=== PATIENT | female | born 1945 ===

== ENCOUNTER 2018-07-02 19:37 | Observation (INO) ==
--- NOTE | 2018-07-02 20:26 | PROVIDER DOCUMENTATION ---
HPI-Neurological Disorder - General Chief Complaint: Stroke-Like Symptoms Stated Complaint: stroke Time Seen by Provider: 07/02/18 19:39 Allergies/Adverse Reactions: Patient Allergies Allergy/AdvReac Type Severity Reaction Status Date / Time No Known Allergies Allergy Verified 09/13/13 21:19 Home Medications: Home Medication List Medication Instructions Recorded Confirmed Last Taken Type Carvedilol [Coreg] 3.125 mg PO DAILY 09/14/13 09/14/13 Unknown History ENALApril [Vasotec] 20 mg PO DAILY 09/14/13 09/14/13 Unknown History Hydrochlorothiazide 50 mg PO DAILY 09/14/13 09/14/13 Unknown History Isosorbide Mononitrate E.r. [Imdur] 60 mg PO DAILY 09/14/13 09/14/13 Unknown History Levothyroxine [Synthroid] 75 microgm PO DAILY 09/14/13 09/14/13 Unknown History Metformin [Glucophage] 850 mg PO BID CC 09/14/13 09/14/13 Unknown History ATORVAstatin [Lipitor] 40 mg PO DAILY #0 tablet 09/16/13 Unknown Rx Aspirin 81 mg PO DAILY #0 chewtab 09/16/13 Unknown Rx Ranolazine E.r. [Ranexa] 500 mg PO BID #60 tablet 09/16/13 Unknown Rx Review of Systems - Adult - REVIEW OF SYSTEMS - ADULT Constitutional: reports: no symptoms reported Past History - Adult - PAST MEDICAL HISTORY-ADULT Review of Records: reports: Old Records Reviewed Physical Exam- Neurological - Physical Exam-Neuro General Appearance: alert, no apparent distress Progress - PLAN OF CARE/RESULTS Progress/Plan/Lab Results: Vital Signs - 8 hr 07/02/18 19:40 07/02/18 19:56 07/02/18 19:58 Temperature 97.9 F Pulse Rate 96 H 99 H 95 H Respiratory Rate 19 22 21 Blood Pressure 123/69 123/69 O2 Sat by Pulse Oximetry 100 94 L 96 07/02/18 20:00 07/02/18 20:10 Temperature Pulse Rate 97 H 98 H Respiratory Rate 23 18 Blood Pressure O2 Sat by Pulse Oximetry 94 L 97 Laboratory Results - last 24 hr 07/02/18 07/02/18 07/02/18 20:00 20:30 20:30 WBC 29.03 H RBC 5.31 Hgb 16.1 H Hct 47.9 H MCV 90.2 MCH 30.3 MCHC 33.6 RDW Std Deviation 12.5 Plt Count 319 MPV 10.7 H Immature Gran % (Auto) 0.5 Neut % (Auto) 91.9 H Lymph % (Auto) 1.8 L [place] % (Auto) 5.5 Eos % (Auto) 0.2 Baso % (Auto) 0.1 Immature Gran # (Auto) 0.15 H Neut # (Auto) 26.67 H Lymph # (Auto) 0.53 L [place] # (Auto) 1.59 H Eos # (Auto) 0.07 Baso # (Auto) 0.02 PT INR PTT (Actin FS) Sodium 141 Potassium 4.6 Chloride 100 Carbon Dioxide 21 L Anion Gap 20 BUN 25 H Creatinine 1.5 H BUN/Creatinine Ratio 17 Glucose 222 H POC Glucose 249 H Calculated Osmolality 293 Calcium 9.2 Total Bilirubin 0.82 AST 17 ALT 22 Alkaline Phosphatase 104 Troponin T Total Protein 8.6 H Albumin 4.7 Globulin 3.9 Albumin/Globulin Ratio 1.2 Urine Source Urine Color Urine Turbidity Urine pH Ur Specific [place] Urine Protein Ur Glucose (Stick) Ur Ketones (Stick) Urine Blood Urine Nitrite Urine Bilirubin Urobilinogen Dipstick Urine Leukocytes Urine WBC (Auto) Urine RBC (Auto) U Epithel Cells (Auto) Urine Bacteria (Auto) 07/02/18 07/02/18 07/02/18 20:30 20:30 20:35 WBC RBC Hgb Hct MCV MCH MCHC RDW Std Deviation Plt Count MPV Immature Gran % (Auto) Neut % (Auto) Lymph % (Auto) [place] % (Auto) Eos % (Auto) Baso % (Auto) Immature Gran # (Auto) Neut # (Auto) Lymph # (Auto) [place] # (Auto) Eos # (Auto) Baso # (Auto) PT 13.6 INR 0.96 PTT (Actin FS) 27.8 Sodium Potassium Chloride Carbon Dioxide Anion Gap BUN Creatinine BUN/Creatinine Ratio Glucose POC Glucose Calculated Osmolality Calcium Total Bilirubin AST ALT Alkaline Phosphatase Troponin T < 0.010 Total Protein Albumin Globulin Albumin/Globulin Ratio Urine Source CATH Urine Color YELLOW Urine Turbidity CLEAR Urine pH 5.5 Ur Specific [place] 1.013 Urine Protein TRACE A Ur Glucose (Stick) NEGATIVE Ur Ketones (Stick) NEGATIVE Urine Blood NEGATIVE Urine Nitrite NEGATIVE Urine Bilirubin NEGATIVE Urobilinogen Dipstick NORMAL Urine Leukocytes NEGATIVE Urine WBC (Auto) <10 Urine RBC (Auto) <10 U Epithel Cells (Auto) <10 Urine Bacteria (Auto) NEGATIVE Orders Category Date Time Status Cardiac Monitoring DIRECTED Care 07/02/18 19:40 Active Finger Stick Blood Sugar (ED) DIRECTED Care 07/02/18 19:40 Active Misc. NRSG Communication Order DIRECTED Care 07/02/18 19:40 Active Oxygen Therapy- ED Nursing DIRECTED Care 07/02/18 19:40 Active Saline Loc NOW Care 07/02/18 19:40 Active CHEST-PORTABLE [RAD] Stat Exams 07/02/18 19:[address] ABD/PELVIS W/IV CONT ONLY [CT] Stat Exams 07/02/18 21:[address] ABDOMEN/PELVIS W/O CONTRAST [CT] Stat Exams 07/02/18 21:[address] HEAD W/O CONTRAST [CT] Stat Exams 07/02/18 19:37 Completed C DIFF ANTIGEN [STOOL] Stat Lab 07/02/18 21:25 Uncollected C DIFF TOXIN [STOOL] Stat Lab 07/02/18 21:25 Uncollected CBC WITH ELECTRONIC DIFF [HEME] Stat Lab 07/02/18 20:30 Completed COMPREHENSIVE METABOLIC PANEL [CHEM] Stat Lab 07/02/18 20:30 Completed LACTATE, PLASMA [CHEM] Stat Lab 07/02/18 21:10 Ordered PROTIME WITH INR [COAG] Stat Lab 07/02/18 20:30 Completed PTT [COAG] Stat Lab 07/02/18 20:30 Completed TROPONIN T Stat Lab 07/02/18 20:30 Completed URINALYSIS W/POSS RFLX CULT [URINALYSIS] Stat Lab 07/02/18 20:35 Completed 0.9% Sodium Chloride Inj [Ns] 1,000 ml Med 07/02/18 21:51 Active IV 999 mls/hr EKG [EKG] Stat Ther 07/02/18 19:40 Ordered Result Diagrams: 07/02/18 20:30 07/02/18 20:30 Departure - Departure Date of Disposition Decision: 07/02/18 Time of Disposition Decision: 21:56 DIAGNOSIS: Stroke-like symptom, Leukocytosis, JAZZMINE (acute kidney injury), Sepsis Disposition: ADMITTED INPATIENT 09 Certified Medical Emergency: Emergent Condition: Stable Additional Freetext Instructions: ED Follow Up Instructions: You have been treated by a care provider in the Emergency Department. These instructions are being provided to you so you can have an understanding of how to care for yourself upon discharge. Upon discharge from the Emergency Department, you are responsible for making arrangements for follow-up care by a physician of your choice. Take all prescribed medications as directed. Return to the Emergency Department immediately for any new or worsening symptoms. You may call the Physician Referral phone number at [phone] to obtain a list of Physicians who are taking new patients. Referrals and Follow-Ups: Maikel Jaquez MD [Primary Care Provider] - - Critical Care Note This patient required my direct & personal management of CC.: No Attestation - Physician/ MADHAV Attestation Patient care was provided by Advanced Practice Provider:: No The physician spent face to face time with patient:: Yes Advanced Practice Provider documentation review:: Supervising physician onsite and consulted in the evaluation and care of this patient. The physician did have a face to face encounter with the patient. - NIH Stroke Scale NIH Type: Initial Evaluation Level of Consciousness: 0-Alert LOC Questions (ask month and age): 1-Answers One Correctly LOC Commands (ask to open & close eyes;make a fist, let go): 0-Obeys Both Correctly Visual (use finger movement, counting or visual threat): 0-No Visual Loss Facial Palsy (show teeth or raise eyebrows & close eyes tght: 0-Symmetrical Movement Motor Function-left arm: 0-Normal Motor Function-right arm: 0-Normal Motor Function-left le-Normal Motor Function-right le-Normal Limb Ataxia(nxgvdc-[id number]-[id number], or heel to esparza): 0-Untestable Sensory(pin prick to face,arms,trunk,legs-compare side/side): 0-No Ataxia Best Language(name item/read sentence.Ex-Down to Earth): 1-Mild to Moderate Aphasia Dysarthria(Pt read words or say words Ex.Mama,Tip-Top,Thanks: 1-Mild-Mod Slurring Words Extinction and Inattention: 0-Normal Modified Wilbarger Score Criteria: 1-no significant disability despite symptoms
--- NOTE | 2018-07-02 20:26 | Diag Imaging Result Doc PS360 ---
EXAM: CT HEAD W/O CONTRAST HISTORY: cva TECHNIQUE: CT head without contrast COMPARISON: None. FINDINGS: No parenchymal hemorrhage. No epidural or subdural hematoma. No subarachnoid hemorrhage. There is evidence of an old left parietal infarct. There are also mild chronic microvascular ischemic changes. No mass identified on this noncontrasted exam. No hydrocephalus. No sinus opacification. IMPRESSION: 1.No hemorrhage 2.Chronic microvascular ischemic changes with an old left parietal infarct 3.A follow-up MRI may be beneficial. This exam was performed using automated exposure control, adjustment of mA or kV according to patient size, and/or use of iterative reconstruction technique. Electronically signed by Dao Davis 07/02/2018 8:23 PM
--- NOTE | 2018-07-02 20:30 | Diag Imaging Result Doc PS360 ---
EXAM: CHEST-PORTABLE HISTORY: stroke like symptoms TECHNIQUE: Portable chest single view COMPARISON: 09/13/2013 FINDINGS: The lungs are well expanded. The heart is not enlarged. The vessels are not distended. There are no infiltrates. No effusion identified. IMPRESSION: Negative exam. Electronically signed by Dao Davis 07/02/2018 8:27 PM
[2018-07-02 20:37] LABS: URINE SOURCE CATH
[2018-07-02 20:43] LABS: BILIRUBIN URINE NEGATIVE (NEGATIVE); BLOOD URINE NEGATIVE (NEGATIVE); COLOR YELLOW; GLUCOSE URINE NEGATIVE (NEGATIVE); KETONE URINE NEGATIVE (NEGATIVE); LEUKOCYTES URINE NEGATIVE (NEGATIVE); NITRITE URINE NEGATIVE (NEGATIVE); PH URINE 5.5; PROTEIN URINE TRACE mg/dL (NEGATIVE); SP GRAVITY URINE 1.013; TURBIDITY URINE CLEAR (CLEAR); UROBILINOGEN URINE NORMAL (NORMAL)
[2018-07-02 20:44] LABS: UR EPITHELIAL CELLS <10 /HPF (<10); URINE BACTERIA NEGATIVE /HPF; URINE RBC <10 /HPF (<10); URINE WBC <10 /HPF (<10)
[2018-07-02 20:49] LABS: INR 0.96; PROTIME 13.6 Seconds (11.0-16.0)
[2018-07-02 20:50] LABS: PTT 27.8 Seconds (22.3-41.8)
[2018-07-02 20:57] LABS: BASO# 0.02 X1000 (0.0-0.2); BASO% 0.1 % (0.0-0.8); EOS# 0.07 X1000 (0.0-0.7); EOS% 0.2 % (0.0-10.0); HEMATOCRIT 47.9 % (37.0-47.0); HEMOGLOBIN 16.1 g/dL (12.0-16.0); IMM GRAN# 0.15 X1000 (0.0-0.04); IMM GRAN% 0.5 % (0.0-0.5); LYMPH# 0.53 X1000 (1.2-3.4); LYMPH% 1.8 % (20.5-51.1); MCH 30.3 PG (27-31); MCHC 33.6 g/dL (33-37); MCV 90.2 FL (81-99); MONO# 1.59 X1000 (0.11-0.59); MONO% 5.5 % (1.7-9.3); MPV 10.7 FL (7.4-10.4); NEUT# 26.67 X1000 (1.4-6.5); NEUT% 91.9 % (42.2-75.2); PLT 319 X1000 (130-400); RBC 5.31 XMIL (4.2-5.4); RDW 12.5 % (11.5-14.5); WBC 29.03 X1000 (4.8-10.8)
[2018-07-02 20:59] LABS: AGAP 20; ALB/GLOB RATIO 1.2; ALBUMIN 4.7 g/dL (3.5-5.0); ALKALINE PHOSPHATASE 104 U/L (32-104); BUN 25 mg/dL (8-22); CALCIUM 9.2 mg/dL (8.8-10.2); CHLORIDE 100 mmol/L (98-107); COSMO 293; CREATININE 1.5 mg/dL (0.5-0.9); GLUCOSE 222 mg/dL (70-104); GOT 17 U/L (10-30); GPT 22 U/L (10-36); POTASSIUM 4.6 mmol/L (3.5-5.1); SODIUM 141 mmol/L (136-145); TCO2 21 mmol/L (25-35); TOTAL BILIRUBIN 0.82 mg/dL (0.20-1.00); TOTAL PROTEIN 8.6 g/dL (6.3-8.3)
[2018-07-02] MEDS ORDERED: NS 1,000 ML IV ONE (21:51)
--- NOTE | 2018-07-02 21:55 | PROVIDER DOCUMENTATION ---
This chart was entered by Shelbi Bañuelos Scribe, acting as scribe for Sofi Cool MD. HPI-Neurological Disorder - General Chief Complaint: Stroke-Like Symptoms Stated Complaint: stroke Time Seen by Provider: 07/02/18 19:39 Source: patient Allergies/Adverse Reactions: Patient Allergies Allergy/AdvReac Type Severity Reaction Status Date / Time No Known Allergies Allergy Verified 09/13/13 21:19 Home Medications: Home Medication List Medication Instructions Recorded Confirmed Last Taken Type Carvedilol [Coreg] 3.125 mg PO DAILY 09/14/13 09/14/13 Unknown History ENALApril [Vasotec] 20 mg PO DAILY 09/14/13 09/14/13 Unknown History Hydrochlorothiazide 50 mg PO DAILY 09/14/13 09/14/13 Unknown History Isosorbide Mononitrate E.r. [Imdur] 60 mg PO DAILY 09/14/13 09/14/13 Unknown History Levothyroxine [Synthroid] 75 microgm PO DAILY 09/14/13 09/14/13 Unknown History Metformin [Glucophage] 850 mg PO BID CC 09/14/13 09/14/13 Unknown History ATORVAstatin [Lipitor] 40 mg PO DAILY #0 tablet 09/16/13 Unknown Rx Aspirin 81 mg PO DAILY #0 chewtab 09/16/13 Unknown Rx Ranolazine E.r. [Ranexa] 500 mg PO BID #60 tablet 09/16/13 Unknown Rx - History of Present Illness-Neuro Nature of Presenting Problem: 73yof with hx diabetes, HTN, CVA, heart stent presents with slurred speech since this evening with nausea, vomiting, and diarrhea for several days. The patient's son reports that she was found in the restroom around 16:30 with slurred speech. He reports that the patient had slurred speech, R-sided weakness from a previous CVA that has resolved with rehab. It is unknown the last time that the patient was seen at normal cognitive baseline. The patient's son and in-law are at bedside. Severity: reports: moderate Onset/Duration: reports: this evening, other (several days: n,v,d) Timing: reports: still present, intermittent, constant Context: reports: impaired speech (expressive aphasia) Character of Altered Mental Status: reports: confused Character of Deficits: reports: impaired speech Gait Baseline: walks without assistance Associated Symptoms: reports: nausea, vomiting. denies: short of breath, chest pain, fever/chills, loss of consciousness Similar Symptoms Previously?: No Recently seen or treated by another doctor?: No Review of Systems - Adult - REVIEW OF SYSTEMS - ADULT Constitutional: denies: chills, fever Eyes: denies: discharge, dry eyes Ears, Nose, Mouth & Throat: denies: ear discharge, ear pain Cardiovascular: denies: chest pain, palpitations Respiratory: denies: cough, shortness of breath Gastrointestinal: reports: diarrhea, nausea, vomiting. denies: abdominal pain Genitourinary: denies: dysuria, hematuria Musculoskeletal: denies: back pain, muscle aches, muscle weakness Integumentary: reports: no symptoms reported Neurological: reports: slurred speech. denies: dizziness/vertigo, headache/ migraines Psychiatric: reports: no symptoms reported Endocrine: reports: no symptoms reported Hematologic/Lymphatic: reports: no symptoms reported Allergic/Immunologic: reports: no symptoms reported All Other Systems: Reviewed and Negative Past History - Adult - PAST MEDICAL HISTORY-ADULT Review of Records: reports: Old Records Reviewed, Nursing Assessment Review, Medications Reviewed Cardiovascular: reports: HTN Endocrine/Immune: reports: Diabetes - PRIOR SURGERIES/PROCEDURES Surgical/Procedure History: reports: appendectomy, cardiac stent - IMMUNIZATION STATUS Childhood Immunizations: See Nurse Assessment Flu Vaccine: See Nurse Assessment - FAMILY HISTORY Family History: reviewed, not pertinent - SOCIAL HISTORY Smoking: non-smoker Substance Use: denies Living Situation: family Physical Exam- Neurological - Physical Exam-Neuro Initial Vital Signs Reviewed: Yes General Appearance: alert, no apparent distress Eye Exam: bilateral eye: normal inspection, PERRL, EOMI Head Injury: no evidence of injury. negative: active bleeding, Cortez's Sign, contusions, ecchymosis, swelling, tenderness Neck: non-tender, supple Respiratory: chest non-tender, lungs clear, normal breath sounds, no pleuratic chest pain, no respiratory distress, no accessory muscle use Cardiovascular: regular rate, rhythm, no murmur Abdominal Exam: non tender, soft Extremity: non-tender, no pedal edema vessel ordinary seaman Exam: PERRL Neurologic: no motor/sensory deficits, aphasia, other (alert, but confused). negative: sensory deficit Integumentary: normal color, warm/dry Psych/Mental Status: other (alert, but confused, expressive aphasia) - Glascow Coma Scale Best Eye Response: (4) open spontaneously Best Verbal Response: (4) confused conversation Best Motor Response: (6) obeys commands Total Glascow Score: 14 Progress - PLAN OF CARE/RESULTS Progress/Plan/Lab Results: Vital Signs - 8 hr 07/02/18 19:40 07/02/18 19:56 07/02/18 19:58 Temperature 97.9 F Pulse Rate 96 H 99 H 95 H Respiratory Rate 19 22 21 Blood Pressure 123/69 123/69 O2 Sat by Pulse Oximetry 100 94 L 96 07/02/18 20:00 07/02/18 20:10 Temperature Pulse Rate 97 H 98 H Respiratory Rate 23 18 Blood Pressure O2 Sat by Pulse Oximetry 94 L 97 Laboratory Results - last 24 hr 07/02/18 07/02/18 07/02/18 20:00 20:30 20:30 WBC 29.03 H RBC 5.31 Hgb 16.1 H Hct 47.9 H MCV 90.2 MCH 30.3 MCHC 33.6 RDW Std Deviation 12.5 Plt Count 319 MPV 10.7 H Immature Gran % (Auto) 0.5 Neut % (Auto) 91.9 H Lymph % (Auto) 1.8 L [place] % (Auto) 5.5 Eos % (Auto) 0.2 Baso % (Auto) 0.1 Immature Gran # (Auto) 0.15 H Neut # (Auto) 26.67 H Lymph # (Auto) 0.53 L [place] # (Auto) 1.59 H Eos # (Auto) 0.07 Baso # (Auto) 0.02 PT INR PTT (Actin FS) Sodium 141 Potassium 4.6 Chloride 100 Carbon Dioxide 21 L Anion Gap 20 BUN 25 H Creatinine 1.5 H BUN/Creatinine Ratio 17 Glucose 222 H POC Glucose 249 H Calculated Osmolality 293 Calcium 9.2 Total Bilirubin 0.82 AST 17 ALT 22 Alkaline Phosphatase 104 Troponin T Total Protein 8.6 H Albumin 4.7 Globulin 3.9 Albumin/Globulin Ratio 1.2 Urine Source Urine Color Urine Turbidity Urine pH Ur Specific [place] Urine Protein Ur Glucose (Stick) Ur Ketones (Stick) Urine Blood Urine Nitrite Urine Bilirubin Urobilinogen Dipstick Urine Leukocytes Urine WBC (Auto) Urine RBC (Auto) U Epithel Cells (Auto) Urine Bacteria (Auto) 01/02/19 01/02/19 01/02/19 20:30 20:30 20:35 WBC RBC Hgb Hct MCV MCH MCHC RDW Std Deviation Plt Count MPV Immature Gran % (Auto) Neut % (Auto) Lymph % (Auto) [place] % (Auto) Eos % (Auto) Baso % (Auto) Immature Gran # (Auto) Neut # (Auto) Lymph # (Auto) [place] # (Auto) Eos # (Auto) Baso # (Auto) PT 13.6 INR 0.96 PTT (Actin FS) 27.8 Sodium Potassium Chloride Carbon Dioxide Anion Gap BUN Creatinine BUN/Creatinine Ratio Glucose POC Glucose Calculated Osmolality Calcium Total Bilirubin AST ALT Alkaline Phosphatase Troponin T < 0.010 Total Protein Albumin Globulin Albumin/Globulin Ratio Urine Source CATH Urine Color YELLOW Urine Turbidity CLEAR Urine pH 5.5 Ur Specific [place] 1.013 Urine Protein TRACE A Ur Glucose (Stick) NEGATIVE Ur Ketones (Stick) NEGATIVE Urine Blood NEGATIVE Urine Nitrite NEGATIVE Urine Bilirubin NEGATIVE Urobilinogen Dipstick NORMAL Urine Leukocytes NEGATIVE Urine WBC (Auto) <10 Urine RBC (Auto) <10 U Epithel Cells (Auto) <10 Urine Bacteria (Auto) NEGATIVE Orders Category Date Time Status Cardiac Monitoring DIRECTED Care 07/02/18 19:40 Active Finger Stick Blood Sugar (ED) DIRECTED Care 07/02/18 19:40 Active Misc. NRSG Communication Order DIRECTED Care 07/02/18 19:40 Active Oxygen Therapy- ED Nursing DIRECTED Care 07/02/18 19:40 Active Saline Loc NOW Care 07/02/18 19:40 Active CHEST-PORTABLE [RAD] Stat Exams 07/02/18 19:[address] ABD/PELVIS W/IV CONT ONLY [CT] Stat Exams 07/02/18 21:[address] ABDOMEN/PELVIS W/O CONTRAST [CT] Stat Exams 07/02/18 21:[address] HEAD W/O CONTRAST [CT] Stat Exams 07/02/18 19:37 Completed C DIFF ANTIGEN [STOOL] Stat Lab 07/02/18 21:25 Uncollected C DIFF TOXIN [STOOL] Stat Lab 07/02/18 21:25 Uncollected CBC WITH ELECTRONIC DIFF [HEME] Stat Lab 07/02/18 20:30 Completed COMPREHENSIVE METABOLIC PANEL [CHEM] Stat Lab 07/02/18 20:30 Completed LACTATE, PLASMA [CHEM] Stat Lab 07/02/18 21:10 Ordered PROTIME WITH INR [COAG] Stat Lab 07/02/18 20:30 Completed PTT [COAG] Stat Lab 07/02/18 20:30 Completed TROPONIN T Stat Lab 07/02/18 20:30 Completed URINALYSIS W/POSS RFLX CULT [URINALYSIS] Stat Lab 07/02/18 20:35 Completed EKG [EKG] Stat Ther 07/02/18 19:40 Ordered Result Diagrams: 07/02/18 20:30 07/02/18 20:30 - REASSESSMENT Reassessment #1 Time Reassessed: 21:39 (expressive aphasia improved, family also saw the difference. spoke with Dr. Zhou at [facility], recommend inpatient for possible encephalopathy but not true CVA. ) Status: improving - EKG 1 Time of EKG reading by physician:: 21:31 EKG Read and Signed by:: Sofi Cool EKG Interpretation (*Must complete 3 of following elements*): Abnormal Rate: 93 Rhythm: NSR [place]: normal QRS: normal ST Wave: non-specific ST changes - XRAY 1 XRAY Study: Chest Impression: Normal (FINDINGS: The lungs are well expanded. The heart is not enlarged. The vessels are not distended. There are no infiltrates. No effusion identified. IMPRESSION: Negative exam.) - CT/MRI 1 CT Study: Head Impression: Abnormal (FINDINGS: No parenchymal hemorrhage. No epidural or subdural hematoma. No subarachnoid hemorrhage. There is evidence of an old left parietal infarct. There are also mild chronic microvascular ischemic changes. No mass identified on this noncontrasted exam. No hydrocephalus. No sinus opacification. IMPRESSION: 1.No hemorrhage 2.Chronic microvascular ischemic changes with an old left parietal infarct 3.A follow-up MRI may be beneficial.) - CONSULTS/PCP/HOSPITALIST Notification #1 *Consult/PCP/Hospitalist*: Dr. Alfredo Time Discussed: 21:25 Consult Disposition: Admit Departure - Departure Date of Disposition Decision: 07/02/18 Time of Disposition Decision: 21:50 DIAGNOSIS: Stroke-like symptom, Leukocytosis, JAZZMINE (acute kidney injury), Sepsis Disposition: ADMITTED INPATIENT 09 Certified Medical Emergency: Emergent Condition: Stable Additional Freetext Instructions: ED Follow Up Instructions: You have been treated by a care provider in the Emergency Department. These instructions are being provided to you so you can have an understanding of how to care for yourself upon discharge. Upon discharge from the Emergency Department, you are responsible for making arrangements for follow-up care by a physician of your choice. Take all prescribed medications as directed. Return to the Emergency Department immediately for any new or worsening symptoms. You may call the Physician Referral phone number at [phone] to obtain a list of Physicians who are taking new patients. Referrals and Follow-Ups: Maikel Jaquez MD [Primary Care Provider] - - Critical Care Note This patient required my direct & personal management of CC.: No Attestation - Physician/ MADHAV Attestation Patient care was provided by Advanced Practice Provider:: No The physician spent face to face time with patient:: Yes Advanced Practice Provider documentation review:: Supervising physician onsite and consulted in the evaluation and care of this patient. The physician did have a face to face encounter with the patient. This chart was documented by the indicated scribe, (Shelbi Bañuelos Scribe) and accurately reflects the services I performed and decisions made by me, Sofi Cool MD, as attested by the provider's signature.
[2018-07-02] MEDS ORDERED: NS 1,000 ML IV SCH (23:08)
[2018-07-02] MEDS ORDERED: ZOFRAN IV PRN (23:08)
[2018-07-02 23:55] LABS: AGAP 16; BUN 25 mg/dL (8-22); CALCIUM 8.1 mg/dL (8.8-10.2); CHLORIDE 102 mmol/L (98-107); COSMO 285; CREATININE 1.4 mg/dL (0.5-0.9); GLUCOSE 146 mg/dL (70-104); POTASSIUM 3.9 mmol/L (3.5-5.1); SODIUM 139 mmol/L (136-145); TCO2 21 mmol/L (25-35)
--- NOTE | 2018-07-03 05:22 | HISTORY AND PHYSICAL ---
PRIMARY CARE PHYSICIAN: Dr. Jaquez. CHIEF COMPLAINT: Nausea, vomiting, diarrhea and slurred speech x1 day. HISTORY OF PRESENT ILLNESS: A 73-year-old female with a history of CVA, hypertension, diabetes mellitus type 2, and coronary artery disease who presented to our emergency department with a 1- day history of having perfuse diarrhea. She states that she was vomiting several times, and was not feeling well. She continues to be nauseated during her evaluation in the ED. As per family when they found her in the bathroom, she was somewhat incoherent and was having some slurring of speech. The patient was evaluated in the ED, and a stroke neurologist was consulted. As per stroke neurologist, she was not a tPA candidate. Due to her presenting symptoms, it was thought that she would need admission for further evaluation management. The patient is a poor historian and most of the history is obtained from family members. However, she denied any headache, fever, chills, chest pain, shortness of breath, hemoptysis or weight changes but complained of still being nauseated. PAST MEDICAL HISTORY: Includes CVA, hypertension, diabetes mellitus type 2, coronary artery disease, hypothyroidism and hyperlipidemia. PAST SURGICAL HISTORY: Coronary artery stent, cholecystectomy and appendectomy. ALLERGIES: No known drug allergies. CURRENT MEDICATIONS: As listed in the medication reconciliation sheet. SOCIAL HISTORY: No history of smoking, alcohol or illicit drug use. FAMILY HISTORY: No history of coronary artery disease. REVIEW OF SYSTEMS: Fourteen point review of systems is as in HPI. Other systems negative. PHYSICAL EXAMINATION: GENERAL: Cooperative and friendly female. She is resting comfortably. VITAL SIGNS: Temperature 97.9 degrees, pulse 96, respiration 19, and blood pressure 129/69. HEENT: Atraumatic, normocephalic. Extraocular movements intact. PERRLA. NECK: No masses. CHEST: Clear to auscultation. CARDIOVASCULAR: Regular rate and rhythm. ABDOMEN: Soft. Positive bowel sounds. EXTREMITIES: No edema. NEUROLOGIC: She is awake, alert, and oriented x3. Speech is intact. Strength 5/5 all extremities. LABORATORIES AND STUDIES: Sodium 141, potassium 4.6, chloride 100, CO2 is 21, BUN is 25, creatinine 1.5, glucose is 222. WBC 29.03, hemoglobin 16.1, hematocrit 47.[address] platelets 319,000. CT of the head shows no hemorrhage. Chronic microvascular ischemic changes with an old left parietal infarct noted. Chest x-ray is negative. ASSESSMENT: A 73-year-old female with a history of CVA, hypertension, diabetes mellitus type 2, and coronary artery disease, who had presented to the emergency department with a 1-day history of having perfuse diarrhea associated with nausea and vomiting. She said during her initial evaluation the family members stated that she was having some slurred speech. Stroke workup was begun. As per stroke neurologist, she was not deemed a tPA candidate. Due to her presenting symptoms, she will require admission for further evaluation and management. 1. Nausea, vomiting and diarrhea. 2. Leukocytosis. 3. Probable TIA. Will need to rule out cerebrovascular accident. 4. Diabetes mellitus type 2. PLAN: 1. We will admit patient to medical floor with telemetry. 2. We will continue with gentle hydration. 3. Continue with antiemetics. 4. We will check the patient for C diff. 5. We will obtain an MRI of the brain with and without. 6. Place patient on glycemic protocol with sliding scale insulin regimen. 7. Place patient on DVT prophylaxis and SCDs. 8. We will continue to follow and reassess. Make further recommendation based on patient's clinical course. cc: Freedom Alfredo MD MTDD
[2018-07-03] MEDS: HUMULIN R SUBQ SCH ×4 (06:01→23:38)
[2018-07-03 06:53] LABS: BASO# 0.01 X1000 (0.0-0.2); BASO% 0.1 % (0.0-0.8); HEMATOCRIT 37.3 % (37.0-47.0); HEMOGLOBIN 12.7 g/dL (12.0-16.0); IMM GRAN# 0.03 X1000 (0.0-0.04); IMM GRAN% 0.2 % (0.0-0.5); LYMPH# 0.46 X1000 (1.2-3.4); LYMPH% 2.5 % (20.5-51.1); MCH 30.6 PG (27-31); MCV 89.9 FL (81-99); MONO# 0.56 X1000 (0.11-0.59); MONO% 3.1 % (1.7-9.3); MPV 10.6 FL (7.4-10.4); NEUT# 17.14 X1000 (1.4-6.5); NEUT% 94.1 % (42.2-75.2); PLT 225 X1000 (130-400); RBC 4.15 XMIL (4.2-5.4); RDW 12.5 % (11.5-14.5)
[2018-07-03] MEDS ORDERED: SODIUM CHLORIDE 0.9% INJ SCH (07:15)
[2018-07-03 07:34] LABS: LYMPHS 4 % (21-51); SEGS 96 % (42-75)
--- NOTE | 2018-07-03 08:22 | Diag Imaging Result Doc PS360 ---
EXAM: CT ABD/PELVIS W/IV CONT ONLY INDICATION: colitis, diverticulitis TECHNIQUE: This exam was performed using automated exposure control, adjustment of mA or kV according to patient size, and/or use of iterative reconstruction technique. COMPARISON: None. FINDINGS: There is subsegmental atelectasis at the lung bases. There has been a prior cholecystectomy. The liver, spleen, pancreas, and adrenal glands are unremarkable. The kidneys and urinary bladder are unremarkable. There is abnormal endometrial thickening with endometrium measuring up to 2.2 cm in thickness. This is suspicious for endometrial hyperplasia or carcinoma. Clinical evaluation is recommended. There is moderate sigmoid colonic diverticulosis with no evidence of diverticulitis. There is a small hiatal hernia. There is mild to moderate distention of the proximal portion of the jejunum. It is nonspecific. More than likely represents ileus. The distal small bowel is decompressed. I suppose a low-grade obstruction is not completely excluded. The remainder of the GI tract is unremarkable. No free abdominal gas or free fluid is identified. There are no focal inflammatory changes. IMPRESSION: 1.Mild/moderate distention of proximal jejunum that is nonspecific. Ileus is most likely. However, it would be difficult to completely exclude a lower grade obstruction. 2.Abnormal endometrial thickening that is suspicious for endometrial hyperplasia or carcinoma. Clinical evaluation is recommended. 3.Uncomplicated diverticulosis coli. Electronically signed by Addison Díaz 07/03/2018 8:19 AM
[2018-07-03] MEDS: LOVENOX SUBQ SCH (09:13)
[2018-07-03] MEDS: PROTONIX IV SCH (09:14)
[2018-07-03] MEDS: FLAGYL 500 MG/NS 500 MG/100 ML IVPB IV SCH ×3 (09:14→20:25)
[2018-07-03] MEDS: NS + KCL 20 MEQ 1,000 ML IV SCH ×3 (09:18→23:38)
--- NOTE | 2018-07-03 09:42 | EKG Report ---
Test Performed on : 07/02/2018 7:52:25 PM Test Reason : AMS Blood Pressure : / mmHG Vent. Rate : 093 BPM Atrial Rate : 093 BPM P-R Int : 184 ms QRS Dur : 070 ms QT Int : 374 ms P-R-T Axes : 072 038 054 degrees QTc Int : 465 ms Normal sinus rhythm. Nonspecific ST abnormality Abnormal ECG When compared with ECG of 15-SEP-2013 12:55, Vent. rate has increased BY [address] now depressed in Lateral leads T wave inversion no longer evident in Inferior leads QT has lengthened Unconfirmed Result
[2018-07-03] MEDS: LEVAQUIN 500 MG/D5W 500 MG/100 ML IVPB IV SCH (10:35)
--- NOTE | 2018-07-03 12:21 | CONSULTATION ---
DATE OF CONSULTATION: 07/03/2018 REASON FOR CONSULTATION: Ms. Sullivan is 73 years old and she had reported transient slurred speech when she presented after an episode of nausea, vomiting and diarrhea. She reports feeling worn out, exhausted, miserable. She was aware that speech was slurred. She believes that has resolved. She has a little bit of sore throat, but otherwise no trouble chewing or swallowing. She reports having "stroke" diagnosed in October of last year when she presented with minimal right arm weakness but prominent speech difficulty to the point she could not find words and sometimes could not speak. Management was in [facility]. We do not have those records now. She reports a good bit of time with rehab after stroke and recovery to the point that, when she was feeling well, she did not have any permanent language deficit. She reports that ever since then, when she is tired, speech may become temporarily a little bit slurred and she may have a little bit of trouble finding her words. There is no history of other stroke. She has not had serious head injury or other neurologic event. She takes her medicines as directed including daily aspirin. There is reported past history of diabetes mellitus, dyslipidemia, hypertension and ischemic heart disease. Workup here includes initial noncontrast CT of the head showing mostly old, chronic microischemic change bilaterally. On my view, I believe there is a hint of more prominent subcortical lucency in the perisylvian white matter on the left which might correlate with her prior stroke history. LABORATORY: Showed BUN 25, glucose stable 140s-160s. WBC count was initially 29,000, later 18,000. There was no urine drug screen on admission. PHYSICAL EXAMINATION: She has been afebrile. Systolic blood pressures were mostly 120s, once recorded in the 90s and then quickly back to the 120s. On exam, Ms. Sullivan is awake, alert, bright, attentive, appropriate, cheerful, oriented to all parameters. She had some trouble finding words including "July" and "President Trump." She named objects and parts of objects well. She followed simple and more complicated commands consistently. She followed spoken and written commands consistently. She followed commands requiring right/left distinction with a little bit of difficulty, but eventually got those right. I did not test her cognitive function more thoroughly. Head and neck are unremarkable. Visual tomlinson are full tested grossly by confrontational finger counting. Extraocular movements are full. Facial motility is a little bit diminished bilaterally, but symmetric. Facial sensation is intact to pinprick and light touch testing. Gag is intact. Tongue is midline. Hearing is fair. Shoulder shrug is good bilaterally. Strength is normal in the left arm and in the legs. I can barely overcome the right arm at the deltoid grading 4+/5. Tone is normal and symmetric in the limbs. She did well on [id number] testing bilaterally. She reports equal pinprick and light touch appreciation over the hands. Reflexes are trace at the ankles and 1+ at the wrists bilaterally. Plantar response is silent bilaterally. I did not test her gait. IMPRESSION: 1. Recent transient slurred speech with question of transient word finding problem associated with exhaustion, related to her nausea, vomiting, diarrhea. 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 I do not see evidence of new brain infarction. Negative imaging report is reassuring. I will request records from [facility] last October for comparison, but would not keep her hospitalized here until we receive those records, if she is otherwise ready for discharge. I will be glad to see her as an outpatient , if needed. 2. Reported history of stroke last October, presumed dominant left hemisphere event with transient mild right hemiparesis and dysphasia. She has risk factors for cerebrovascular ischemic problems including age, dyslipidemia, hypertension, heart disease, diabetes mellitus. We discussed aggressive management of those and she will continue follow-up with her primary physician, Dr. Jaquez. Thanks for asking Neurology to see Ms. Sullivan. cc: MD Maikel Mckenzie III, MD [facility]
[2018-07-03 15:44] LABS: AGAP 14; ALB/GLOB RATIO 1.2; ALBUMIN 3.3 g/dL (3.5-5.0); ALKALINE PHOSPHATASE 71 U/L (32-104); BUN 27 mg/dL (8-22); CALCIUM 8.1 mg/dL (8.8-10.2); CHLORIDE 106 mmol/L (98-107); COSMO 291; CREATININE 1.1 mg/dL (0.5-0.9); GLUCOSE 113 mg/dL (70-104); GOT 13 U/L (10-30); GPT 14 U/L (10-36); MAGNESIUM 1.4 mg/dL (1.5-2.7); POTASSIUM 3.7 mmol/L (3.5-5.1); SODIUM 143 mmol/L (136-145); TCO2 23 mmol/L (25-35)
--- NOTE | 2018-07-03 21:03 | PROGRESS NOTE ---
DATE: 07/03/2018 SUBJECTIVE: I evaluated patient in the morning and again this evening. Ms. Sullivan is a 73-year- old female patient admitted with not feeling well. The patient vomited multiple times. She also had some nausea. Family noticed slurred speech. Patient also had some disorientation. The patient was brought to the emergency room, evaluated by ER physician. Because of her altered mental status, vomiting and multiple medical problems blood work in the ER revealed leukocytosis. We decided to admit the patient for observation. The patient denied any chest pain or palpitation. No high-grade fever, unusual shortness of breath. No diarrhea, blood or mucus in the stool. The patient found to have leukocytosis. No major hypoglycemic episode. No focal weakness. Admission history and physical noted. PAST MEDICAL HISTORY: Hypertension, hyperlipidemia, CVA, diabetes mellitus, hypothyroidism, coronary artery disease. OBJECTIVE: Vital Signs: Blood pressure 129/40, pulse 71, respirations 15, temperature 97.9 degrees. Skin: Senile turgor. No rash or petechiae. HEENT: Head atraumatic, normocephalic. [place] conjunctivae. Anicteric sclerae. Extraocular muscle movement normal. Fundus cannot be penetrated. Good oral hygiene. No tonsillopharyngeal congestion or exudate. Ears and nose benign. Lungs: Bibasilar crepitations. Heart: S1 and S2 heard. Abdomen: Soft, globular. Bowel sounds present. Extremities: No cyanosis, clubbing. No acute DVT. Central Nervous System: Alert, awake. Able to move all 4 limbs. CONSIDERATION: The patient admitted with vomiting. Patient had leukocytosis, history of CVA, diabetes mellitus, hypertension. I started patient empirically on Levaquin and Flagyl. Will hydrate patient. Plenty of liquids orally. Admission Lab Data: WBC count was 29,000 with left shift. Her other problem includes diabetes, hypertension, history of CVA, coronary artery disease. Patient had CT scan of the abdomen and pelvis done. Results reviewed. Her chest x-ray was negative. I am going to repeat blood work in the morning. Continue rest of the treatment. Gradually advance diet. PLAN: Overall plan discussed with the patient and she is in agreement. cc: Maikel Jaquez MD
[2018-07-04] MEDS: FLAGYL 500 MG/NS 500 MG/100 ML IVPB IV SCH ×3 (03:45→16:38)
[2018-07-04] MEDS: NS + KCL 20 MEQ 1,000 ML IV SCH (06:38)
[2018-07-04] MEDS: HUMULIN R SUBQ SCH ×3 (06:40→16:38)
[2018-07-04] MEDS ORDERED: MAGNESIUM SULFATE 2 GM/S.W.I. 2 GM/50 ML IVPB IV ONE (06:46)
[2018-07-04 07:10] LABS: BASO# 0.01 X1000 (0.0-0.2); BASO% 0.1 % (0.0-0.8); EOS# 0.12 X1000 (0.0-0.7); EOS% 1.2 % (0.0-10.0); HEMATOCRIT 34.8 % (37.0-47.0); HEMOGLOBIN 11.6 g/dL (12.0-16.0); LYMPH# 1.31 X1000 (1.2-3.4); LYMPH% 12.6 % (20.5-51.1); MCH 30.5 PG (27-31); MCHC 33.3 g/dL (33-37); MCV 91.6 FL (81-99); MONO# 0.65 X1000 (0.11-0.59); MONO% 6.2 % (1.7-9.3); MPV 10.7 FL (7.4-10.4); NEUT# 8.32 X1000 (1.4-6.5); NEUT% 79.9 % (42.2-75.2); PLT 187 X1000 (130-400); RDW 12.6 % (11.5-14.5); WBC 10.41 X1000 (4.8-10.8)
--- NOTE | 2018-07-04 07:11 | PROGRESS NOTE ---
DATE: 07/04/2018 SUBJECTIVE: Ms. Sullivan is doing better. Abdominal pain, nausea, vomiting improving. She is tolerating full liquid diet well. The patient does feel hungry. No chest pain or palpitation. OBJECTIVE: Vital signs stable. Denied any dysuria or hematuria. The patient denied any vaginal bleeding or spotting. No heat or cold intolerance. No focal new weakness. Her speech seems to be improving. Patient admitted with nausea, leukocytosis. Vital signs noted. Neck supple. No JVD. Lungs: Bilateral good air entry present. CVS: S1 and S2 heard. Abdomen soft. No distention. Bowel sounds present. Extremities: No cyanosis, clubbing. No acute DVT. UNDERGROUND UTILITY LOCATOR: Alert, awake, answering questions fairly well. Able to move all 4 limbs. LABORATORY DATA: Order for today is pending. CONSIDERATION: 1. Gastroenteritis. Clinically, patient is doing better. There was question about transient ischemic attack. Dr. Guevara's recommendation noted. 2. Diabetes mellitus. Her Accu-Chek results reviewed. 3. Hypothyroidism; on Synthroid. I am going to check TSH and free T4. After reviewing the results, will make necessary recommendations. 4. Diabetes mellitus; on oral hypoglycemic agent. 5. History of cerebrovascular accident. 6. Coronary artery disease. 7. The patient did have hypomagnesemia. I am going to supplement magnesium. The patient had abnormal uterus on CT scan. Clinically, the patient is asymptomatic. I am going to get a pelvic ultrasound. If clinical condition permits, if she tolerates food well, I am planning to discharge patient home today. cc: Maikel Jaquez MD
[2018-07-04 07:30] LABS: HEMOGLOBIN A1C 6.5 % (4.8-6.0)
[2018-07-04 07:51] LABS: FREE T4 1.24 ng/dL (0.93-1.70); TSH 0.98 uIUmL (0.27-4.20)
[2018-07-04 07:52] LABS: AGAP 11; ALB/GLOB RATIO 1.1; ALKALINE PHOSPHATASE 64 U/L (32-104); BUN 16 mg/dL (8-22); CALCIUM 7.8 mg/dL (8.8-10.2); CHLORIDE 107 mmol/L (98-107); COSMO 284; CREATININE 0.9 mg/dL (0.5-0.9); GLUCOSE 129 mg/dL (70-104); GOT 12 U/L (10-30); GPT 12 U/L (10-36); MAGNESIUM 1.4 mg/dL (1.5-2.7); POTASSIUM 4.1 mmol/L (3.5-5.1); SODIUM 141 mmol/L (136-145); TCO2 23 mmol/L (25-35); TOTAL BILIRUBIN 0.26 mg/dL (0.20-1.00); TOTAL PROTEIN 5.8 g/dL (6.3-8.3)
--- NOTE | 2018-07-04 09:08 | Diag Imaging Result Doc PS360 ---
EXAM: US PELVIC NON-OB COMPLETE HISTORY: abn. uterus on CT TECHNIQUE: Transvesical pelvic ultrasound COMPARISON: CT from 07/02/2018 FINDINGS: The urinary bladder is distended and is normal. The uterus measures 6.4 x 4.5 x 2.5 cm. Heterogeneous fundus. It is difficult to tell if this represents endometrial thickening or if this could be a fibroid. No other uterine abnormality. Normal ovaries. No adnexal mass. No free fluid. IMPRESSION: Heterogeneous appearance to the fundus of uterus on the transvaginal imaging may represent a fibroid or endometrial thickening. Electronically signed by Dao Davis 07/04/2018 9:05 AM
[2018-07-04] MEDS: PROTONIX IV SCH (09:18)
[2018-07-04] MEDS: LOVENOX SUBQ SCH (09:18)
--- NOTE | 2018-07-04 10:52 | PROGRESS NOTE ---
DATE: 07/04/2018 SUBJECTIVE: Ms. Sullivan reports feeling better with no new neurologic problems. OBJECTIVE: She is awake and alert this morning. Her voice is strong. Speech is not significantly dysarthric. I do not find anything new on limited bedside exam now. I do not have any new thoughts or new suggestion today from neurologic standpoint. Thanks for asking me to see Ms. Sullivan. cc: MD Maikel Mckenzie III, MD MTDD
[2018-07-04] MEDS: LEVAQUIN 500 MG/D5W 500 MG/100 ML IVPB IV SCH (10:54)
--- NOTE | 2018-07-04 16:30 | PROGRESS NOTE ---
DATE: 07/04/2018 SUBJECTIVE: Ms. Sullivan is doing better. She is tolerating food well. The patient was able to ambulate well. She denied any fever or chills. No nausea or vomiting. I rechecked her lab data. Leukocyte count improved. No fever or chills. No chest pain. Her magnesium was low. I supplemented magnesium. Hemoglobin A1c was 6.5. Overall, the patient is feeling better. The patient is eager to go home. OBJECTIVE: Vital signs: Noted, which were satisfactory. Neck: Supple. No JVD. Lungs: Bilateral good air entry present. Cardiovascular: S1 and S2 heard. Abdomen: Soft, nontender. Bowel sounds present. Central nervous system: Alert, awake. Able to move all 4 limbs. LABORATORY DATA: Hemoglobin A1c 6.5. TSH 0.98, free T4 1.24. Magnesium was 1.4, but I supplemented magnesium. DIAGNOSTIC STUDIES: I did a pelvic ultrasound because of abnormal uterus on CT, which revealed fibroid or endometrial thickening. No other uterine abnormality. Normal ovaries. PLAN: Patient's blood pressure was staying okay without medicine. I am going to start with lower dose. Plan discussed with patient. I also called patient's son, Mr. Fredy Sullivan, and discussed the plan with him. Advised patient and son to make appointment to come back and see me on Saturday. Monitor Accu-Chek and blood pressure at home. Fall precautions. I am going to continue current treatment and antibiotics. In case of more distress, call us back or go to the emergency room. Overall discharge condition satisfactory. cc: Maikel Jaquez MD
[2018-07-04 16:33] VITALS: BP 129/99
--- NOTE | 2018-07-27 22:55 | DISCHARGE SUMMARY ---
ADMISSION DATE: 07/02/2018 DISCHARGE DATE: 07/04/2018 FINAL DISCHARGE DIAGNOSES: 1. Infective gastroenteritis versus colitis. 2. Leukocytosis. 3. Diabetes mellitus. 4. Hypertension. 5. Cerebrovascular accident. 6. Hyperlipidemia. 7. Hypothyroidism. 8. Abnormal uterus on CT scan. 9. Questionable transient ischemic attack. PRESENT ILLNESS: Ms. Sullivan is a 73-year-old white female patient admitted with a history of profuse diarrhea. The patient also had some nausea and vomiting. The patient also had slurred speech. She had a history of CVA in the past, multiple risk factors for atherosclerosis. The patient was evaluated in the ER, admitted for further care. HOSPITAL COURSE: Her lab data did reveal significant leukocytosis. The patient was treated with IV hydration, symptomatic treatment. I started her on IV antibiotics. Her clinical condition gradually improved. The patient had a CT scan of the abdomen and pelvis done which did reveal mild to moderate distention of proximal jejunum which was nonspecific, abnormal endometrial thickening that is suspicious for endometrial hyperplasia or carcinoma, uncomplicated diverticulosis. I did ultrasound of the uterus which revealed heterogeneous appearance to the fundus of the uterus on the transvaginal imaging, may be present fibroid or endometrial thickening, no adnexal mass and no free fluid. The patient had neurology consult done, and recommendation was no evidence of TIA or CVA. Overall, the patient received maximum benefit of hospitalization. Her lab data revealed improvement in WBC count. The patient has started tolerating food well. Her blood pressure has remained stable without medicine. I did discuss her discharge condition with her son and discharged the patient home on July 04. DISCHARGE INSTRUCTIONS: Discharge plan discussed with the patient. Monitor blood pressure and Accu-Chek at home. Follow up with me as scheduled. In case of more distress, call us back or go to the emergency room. LABORATORY DATA: Initial WBC count was 29.03; later one, it was 10.41. Initial hemoglobin was 16.1; at the time of discharge, it was 11.6. Her electrolytes were fairly benign. TSH 0.98, free T4 was 1.24. cc: Maikel Jaquez MD
== END 2018-07-04 17:50 | disposition home or self-care (01) ==
LOC: 3N 19:37 → ED 19:37 → SUATTDRO 22:34
PROVIDERS: ADMIT Internal Medicine; ATTEND Internal Medicine
CPT/HCPCS: 51701; 70450; 71010; 71045; 74177; 76830; 76856; 80048; 80053; 81001; 82948; 83036; 83605; 83690; 83735; 84439; 84443; 84484; 85025; 85610; 85730; 93005; 94761; 96360; 99285; A9270; C9113; J1650; J1956; J2405; J3475; J3480; J7030; P9612; Q9967; S0030; S0164; XXXXX